=== PATIENT | female | born 1980 | race Caucasian/White ===

== ENCOUNTER 2024-05-16 21:07 | Emergency (ER) | payer OTHER, SELFPAY ==
[2024-05-16 21:13] VITALS: BP 153/93; PULSE 78; RESP 18; TEMP 37; O2SAT 98; BMI 27.4
--- NOTE | 2024-05-16 21:27 | ED_ITS ---
<Statement entered by Mike Pulliam MD - 05/16/24 23:10> I was consulted by the YOUNG, and we discussed the complexity of the problems being addressed. I approved the treatment and management plan for this patient's care in the emergency department, thus performing a substantive portion of the medical decision making. Mike Pulliam MD, ROSSI, FACEP Discharge Plan Disposition Patient Disposition: Home, Self-Care Condition: Good Prescriptions Prescriptions: New cephalexin 500 mg capsule 500 mg PO TID 10 Days Qty: 30 0RF cephalexin 500 mg capsule 500 mg PO TID 10 Days Qty: 30 0RF No Action escitalopram oxalate [Lexapro] 5 mg Tablet 5 mg PO DAILY Referrals Follow up/Referrals: Dilshad Molina MD [Primary Care Provider] - See instructions Activity Restrictions/Add. Instructions Additional Instructions/Restrictions: Today you were evaluated in the emergency department and diagnosed with cellulitis. Please take the Keflex as directed. Please follow back up with your PCP within 7 days. Please return to the ED for any worsening of condition. Clinical Impressions Clinical Impression: Cellulitis Qualifiers: Site of cellulitis: extremity Site of cellulitis of extremity: lower extremity Laterality: unspecified laterality Qualified Code(s): L03.119 - Cellulitis of unspecified part of limb Instructions Patient Instructions: DI for Cellulitis -- Adult Print Language Print Language: Tajik Discharge ED Provider: Mike Pulliam General Adult HPI General Chief complaint: Extremity Problem,Nontraumatic Stated complaint: Both ankles swollen,red Time Seen by Provider: 05/16/24 21:21 Mode of Arrival: Ambulatory Source of Information: Patient Description of Symptoms (Recalled from ER Triage Doc. by RN): Pt presents for evaluation of redness/swelling to bilateral lower legs. History of Present Illness HPI narrative: Patient is a 43-year-old female PMHx diagnosed this week with Raynaud's, (placed on antihypertensive however has not picked this up from the pharmacy yet) who presents to the ED for bilateral lower extremity edema, erythema, pruritus for 2 days. Related Data Home Medications ?Medication ?Instructions ?Recorded ?Confirmed escitalopram oxalate 5 mg tablet 5 mg PO DAILY 05/16/24 05/16/24 (Lexapro) Previous Rx's ?Medication ?Instructions ?Recorded cephalexin 500 mg capsule 500 mg PO TID 10 days #30 caps 05/16/24 cephalexin 500 mg capsule 500 mg PO TID 10 days #30 caps 05/16/24 Allergies Allergy/AdvReac Type Severity Reaction Status Date / Time Penicillins Allergy Rash Verified 05/16/24 21:18 [facility] Disclaimer: The information contained in this section may have been updated after the patient was seen, as this information can be updated by other users. Social History Smoking Status: Current every day smoker alcohol intake: former current occupational status: unemployed Travel in the last 8 weeks: None ROS Obtained: Yes Systems reviewed as appropriate & no additional complaints except as documented Physical Exam General General appearance: alert and in no apparent distress Head Head exam: atraumatic and normocephalic Eye Eye exam: Present normal appearance and PERRL ENT ENT exam: Present normal exam Neck Neck exam: Present normal inspection Chest Chest inspection: Present normal inspection and symmetric chest wall rise; Absent tenderness Respiratory Respiratory exam: Present normal lung sounds bilaterally Cardiovascular Cardiovascular exam: Present regular rate Abdominal Exam Abdominal exam: Present soft and normal bowel sounds; Absent tenderness Extremities Exam Extremities exam: Present normal inspection and full ROM Back Exam Back exam: Present normal inspection and full ROM Neurological Exam Neurological exam: Present alert and oriented X3 Psychiatric Psychiatric exam: Present normal affect and normal mood Skin Skin exam: Present other (bilateral upper extremity erythematous hands. Bilateral lower extremity blanchable erythematous feet and ankles. Neurovascular status intact. bilateral lower extremity blanchable erythema and warmth.) Medical Decision Making Medical Records Screening: Per USPSTF and CDC recommendations, given the prevalence of disease in our region, it is our hospital?s policy to screen for HIV and viral Hepatitis for all patients aged 18 and over and those with ongoing risk factors. Adrian Inquiry Pt receiving controlled substance: No Adrian was queried for this patient: No Vital Signs: 05/16/24 21:13 Temperature 98.6 F Temperature Source Oral Pulse Rate [Right] 78 Respiratory Rate 18 Blood Pressure [Right Arm] 153/93 H Blood Pressure Mean [Right Arm] 113 Blood Pressure Source [Right Arm] Automatic Cuff Blood Pressure Position [Right Arm] Sitting 02 Sat by Pulse Oximetry 98 Oxygen Delivery Method Room Air Orders (Tests/Meds): ED MEDICATIONS Discontinued Medications Generic Name Dose Route Start Last Admin Trade Name Freq PRN Reason Stop Dose Admin Cephalexin HCl 500 mg 05/16/24 21:39 05/16/24 21:46 Cephalexin 500mg Capsule PO 05/16/24 21:40 500 mg ONCE ONE Administration ORDERS Category Date Time Status CBC w/Auto Diff [Complete Blood Count Auto Diff] Stat Lab 05/16/24 21:26 Ordered CMP [Comprehensive Metabolic Panel] Stat Lab 05/16/24 21:26 Ordered Medical Decision Narrative: In summary, patient is a 43-year-old female PMHx diagnosed this week with Raynaud's, (placed on antihypertensive however has not picked this up from the pharmacy yet) who presents to the ED for bilateral lower extremity edema, erythema, pruritus for 2 days. Patient states at baseline she has red, splotchy and swollen hands and feet. She states that she shaved her legs yesterday morning, scratched her legs while she was outside and then over the course of the afternoon developed the erythema, warmth and pruritus. No history of cellulitis in the past. Denies alcohol use, admits to smoking marijuana, recently quit vaping 1 month ago. Denies fever, chills, body aches, headache, visual disturbances, posterior neck pain, chest pain, shortness of breath, abdominal pain, nausea, vomiting, dysuria, recent insect bite. Upon initial evaluation patient is alert, oriented and cooperative. She has bilateral upper extremity erythematous hands. Bilateral lower extremity blanchable erythematous feet and ankles. Neurovascular status intact. Bilateral lower extremity blanchable erythema, warmth, pruritus. 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 This should treat her cellulitis. Advised her to follow back up with her PCP. We discussed return precautions to the ED and patient verbalized understanding. Critical Care Critical Care Time Critical Care Time: No
[2024-05-16] MEDS: cephALEXin 500MG CAPSULE 500 MG PO (21:46)
[2024-05-16 22:06] VITALS: BP 143/64; PULSE 66; RESP 16; TEMP 36.7; O2SAT 99
== END 2024-05-16 22:07 | disposition home or self-care (01) ==
PROVIDERS: Emergency Provider Student in an Organized Health Care Education/Training Program; PCP Family Medicine
DX: L03.115 Cellulitis of right lower limb (principal); L03.116 Cellulitis of left lower limb
CPT/HCPCS: 99283